=== PATIENT | male | born 1975 | race African-American/Black ===

== ENCOUNTER 2019-11-01 22:25 | Emergency (ER) | payer OTHER ==
[2019-11-01] MEDS ORDERED: glyBURIDE 5 MG Tab PO STA (22:43)
[2019-11-01] MEDS ORDERED: metFORMIN 500 MG Tab PO STA (22:43)
--- NOTE | 2019-11-01 22:49 | EDM.PDOC ---
ED HPI GENERAL MEDICAL PROBLEM - General Stated Complaint: MED REFILL Time Seen by Provider: 11/01/19 22:40 Source of Information: Reports: Patient History Limitations: Reports: No Limitations - History of Present Illness INITIAL COMMENTS - FREE TEXT/NARRATIVE: Patient presented to the ED because of an elevated BS of 342. He foregot his medications at home and he is taking his brothers metformin. Denies any headache ,N/V or abdominal pain. - Related Data Allergies Allergy/AdvReac Type Severity Reaction Status Date / Time No Known Allergies Allergy Verified 11/01/19 23:01 Home Meds: Home Meds Insulin Detemir [Levemir] 10 unit SUBCUT DAILY 11/02/19 [History] Lisinopril [Zestril] 20 mg PO DAILY 11/02/19 [History] atorvaSTATin [Lipitor] 40 mg PO BEDTIME 11/02/19 [History] glyBURIDE [Glyburide] 10 mg PO DAILY 11/02/19 [History] metFORMIN [Glucophage] 1,000 mg PO BIDMEALS 11/02/19 [History] Past Medical History HEENT History: Reports: None Endocrine/Metabolic History: Reports: Diabetes, Type I Social & Family History - Family History Family Medical History: Noncontributory ED ROS GENERAL - Review of Systems Review Of Systems: See Below Constitutional: Reports: No Symptoms HEENT: Reports: No Symptoms Respiratory: Reports: No Symptoms Cardiovascular: Reports: No Symptoms Endocrine: Reports: No Symptoms GI/Abdominal: Reports: No Symptoms : Reports: No Symptoms Musculoskeletal: Reports: No Symptoms Skin: Reports: No Symptoms Neurological: Reports: No Symptoms Psychiatric: Reports: No Symptoms Hematologic/Lymphatic: Reports: No Symptoms Immunologic: Reports: No Symptoms ED EXAM, GENERAL - Physical Exam Exam: See Below Exam Limited By: No Limitations General Appearance: Alert, WD/WN, No Apparent Distress Ears: Normal External Exam, Normal Canal, Hearing Grossly Normal, Normal TMs Nose: Normal Inspection, Normal Mucosa, No Blood Throat/Mouth: Normal Inspection, Normal Lips, Normal Teeth Head: Atraumatic, Normocephalic Neck: Normal Inspection, Supple, Non-Tender Respiratory/Chest: No Respiratory Distress, Lungs Clear Cardiovascular: Normal Peripheral Pulses, Regular Rate, Rhythm, No Edema, No JVD , No Murmur GI/Abdominal: Normal Bowel Sounds, Soft, Non-Tender, No Organomegaly, No Distention, No Abnormal Bruit, No Mass, Pelvis Stable, Mass Back Exam: Normal Inspection, Full Range of Motion Extremities: Normal Inspection, Normal Range of Motion Neurological: Alert, Oriented, CN II-XII Intact, Normal Cognition, Normal Gait, Normal Reflexes, No Motor/Sensory Deficits Psychiatric: Normal Affect Course - Vital Signs Text/Narrative:: glipizide 10 mg po x1 metformin 500 mg po x1 Last Recorded V/S: Last Vital Signs Temp 36.6 C 11/01/19 22:35 Pulse 84 11/01/19 22:35 Resp 18 11/01/19 22:35 BP 159/84 H 11/01/19 22:35 Pulse Ox 100 11/01/19 22:35 - Orders/Labs/Meds Orders: Active Orders 24 hr Category Date Time Status Accu Check [Blood Glucose Check, Bedside] [RC] ONETIME Care 11/01/19 22:45 Active Labs: Laboratory Tests 11/01/19 Range/Units 22:42 POC Glucose 242 H (80-116) mg/dL Meds: Medications Discontinued Medications Generic Name Dose Route Start Last Admin Trade Name Joaquim PRN Reason Stop Dose Admin Glyburide 10 mg 11/01/19 22:43 11/01/19 22:57 Micronase PO 11/01/19 22:44 10 mg NOW STA Administration Metformin HCl 500 mg 11/01/19 22:43 11/01/19 22:57 Glucophage PO 11/01/19 22:44 500 mg NOW STA Administration Departure - Departure Time of Disposition: 22:45 Disposition: Home, Self-Care 01 Condition: Good Clinical Impression: Hyperglycemia due to type 2 diabetes mellitus - Discharge Information Instructions: Hyperglycemia, [id number] Referrals: PCP,None [Primary Care Provider] - Forms: ED Department Discharge Additional Instructions: please read discharge instructions on hyperglycemia take some snacks when you go home Glyburide can cause hypoglycemia Follow up as needed Sepsis Event Note - Focused Exam Vital Signs: Vital Signs Temp Pulse Resp BP Pulse Ox 11/01/19 22:35 36.6 C 84 18 159/84 H 100 Date Exam was Performed: 11/02/19 Time Exam was Performed: 09:37 - My Orders Last 24 Hours: My Active Orders 11/01/19 22:45 Accu Check [Blood Glucose Check, Bedside] [RC] ONETIME - Assessment/Plan Last 24 Hours: My Active Orders 11/01/19 22:45 Accu Check [Blood Glucose Check, Bedside] [RC] ONETIME
== END 2019-11-01 23:00 | disposition home or self-care (01) ==
LOC: FB.ED 22:25
DX: E11.65 Type 2 diabetes mellitus with hyperglycemia (principal); Z79.4 Long term (current) use of insulin; Z79.899 Other long term (current) drug therapy
CPT/HCPCS: 82962; 99282; A9270

== ENCOUNTER 2022-03-19 18:59 | Emergency (ER) | payer OTHER | END 2022-03-19 20:15 | disposition home or self-care (01) | LOC: FB.ED 18:59 | DX: H71.01 Cholesteatoma of attic, right ear (principal); E78.00 Pure hypercholesterolemia, unspecified; I10 Essential (primary) hypertension; E10.9 Type 1 diabetes mellitus without complications; Z79.899 Other long term (current) drug therapy | CPT/HCPCS: 99281; 99282 ==